=== PATIENT | male | born 2000 | race Caucasian/White ===

== ENCOUNTER 2019-08-25 02:23 | Emergency (ER) | payer OTHER ==
[2019-08-25] MEDS ORDERED: DIPHENHYDRAMINE HCL 50 MG/ML VIAL IM ONE (03:48)
[2019-08-25] MEDS ORDERED: KETOROLAC TROMETHAMINE 60 MG/2 ML SDV IM ONE (03:48)
--- NOTE | 2019-08-25 04:57 | ER Document Report ---
ED General - General Chief Complaint: Sunburn Stated Complaint: POSSIBLE ALLERGIC REACTION Time Seen by Provider: 08/25/19 03:20 Mode of Arrival: Ambulatory Information source: Patient TRAVEL OUTSIDE OF THE [place] IN LAST 30 DAYS: No - HPI Onset: Other - Patient was sun burnt on Friday Onset/Duration: Gradual Quality of pain: Burning Severity: Moderate Pain Level: 4 Associated symptoms: Other - itchiness and redness of chest Exacerbated by: Denies Relieved by: Denies Similar symptoms previously: No Recently seen / treated by doctor: No Notes: 19 year old male with no significant PMH here for evaluation of a sun burn to his chest which happened Friday. The patient says his chest has been red and itc hy but he denies fevers, chills, sweats. The patient has tried an over the counter aloe vera cream but he says it made his skin burn so he stopped. - Related Data Allergies/Adverse Reactions: No Known Allergies Allergy (Unverified 08/25/19 02:30) Past Medical History - General Information source: Patient - Social History Smoking Status: Never Smoker Frequency of alcohol use: Occasional Drug Abuse: None Lives with: Spouse/Significant other Family History: Reviewed & Not Pertinent Patient has suicidal ideation: No Patient has homicidal ideation: No Review of Systems - Review of Systems Constitutional: No symptoms reported EENT: No symptoms reported Cardiovascular: No symptoms reported Respiratory: No symptoms reported Gastrointestinal: No symptoms reported Genitourinary: No symptoms reported Male Genitourinary: No symptoms reported Musculoskeletal: No symptoms reported Skin: Other - Sun burn to chest Hematologic/Lymphatic: No symptoms reported Neurological/Psychological: No symptoms reported -: Yes All other systems reviewed and negative Physical Exam - Vital signs Vitals: Temp Pulse Resp BP Pulse Ox 97.5 F 70 16 150/89 H 98 08/25/19 02:28 08/25/19 02:28 08/25/19 02:28 08/25/19 02:28 08/25/19 02:28 - Notes Notes: GENERAL: Well-appearing, well-nourished and in no acute distress. HEAD: Atraumatic, normocephalic. EYES: Pupils equal round and reactive to light, extraocular movements intact, sclera anicteric, conjunctiva are normal. ENT: TMs normal, nares patent, oropharynx clear without exudates. Moist mucous membranes. NECK: Normal range of motion, supple without lymphadenopathy or JVD. LUNGS: Breath sounds clear to auscultation bilaterally and equal. No wheezes rales or rhonchi. HEART: Regular rate and rhythm without murmurs, rubs or gallops. ABDOMEN: Soft, nontender, normoactive bowel sounds. No guarding, no rebound. No masses appreciated. EXTREMITIES: Normal range of motion, no pitting or edema. No clubbing or cyanosis. NEUROLOGICAL: Cranial nerves II through XII grossly intact. Normal speech, normal gait. PSYCH: Normal mood, normal affect. SKIN: Anterior chest is erythematous and warm to touch and consistent with a Sun Burn. Rest of skin is warm, dry, normal turgor, no rashes or lesions noted. Course - Re-evaluation Re-evalutation: 08/25/19 06:23 The patient has a Sun Burn on his chest. The burn seems superficial in nature with no blistering on exam. Patient was treated with Toradol IM and Benadryl IM here in the ER. Patient told to use Benadryl PO and Topical Aloe Vera Gel at home. Patient told to follow up with his PCP. - Vital Signs Vital signs: Temp Pulse Resp BP Pulse Ox 98.1 F 56 L 16 138/77 H 99 08/25/19 05:13 08/25/19 05:13 08/25/19 05:13 08/25/19 05:13 08/25/19 05:13 Discharge - Discharge Clinical Impression: Sunburn Condition: Stable Disposition: HOME, SELF-CARE Instructions: Sunburn (OM) Additional Instructions: Use Tylenol and Motrin for pain. Use Benadryl for itchiness. Use Aloe Vera gel as well. Follow up with your primary care doctor.
[2019-08-25 05:16] VITALS: BP 138/77
== END 2019-08-25 05:15 | disposition home or self-care (01) ==
LOC: ER 02:23
DX: L55.9 Sunburn, unspecified (principal)
CPT/HCPCS: 99282; J1200; J1885